=== PATIENT | male | born 1965 | race Caucasian/White ===

== ENCOUNTER 2016-07-05 16:37 | Emergency (ER) | payer BC ==
[~2016-07-05] VITALS: Ht 190.5 cm; Wt 140.6 kg
[2016-07-05 16:46] VITALS: BP 128/68; PULSE 108; RESP 18; TEMP 97.8; O2SAT 92
--- NOTE | 2016-07-05 16:53 | NUR ---
Pt placed to ER bed 07. Pt report given to SANTOS Maynard.
--- NOTE | 2016-07-05 16:57 | NUR ---
Recieved Pt in bed 7. Pt c/o generalize weakness, unlabored to sleep, SOB since yesterday 07/04/2016 Addendum: 07/05/16 at 1733 by STANLEY Pt also c/o of frequency, urgency upon urination and urinary retention.
--- NOTE | 2016-07-05 17:08 | NUR ---
blood drawn and IV started. IV started on left wrist 20 G SL. No s/s of infiltration/inflammation noted. Pt tolerated procedure.
--- NOTE | 2016-07-05 18:00 | NUR ---
Nakul LEONE RN at bedside evaluating Pt. Currently awaiting new orders.
[2016-07-05] MEDS ORDERED: KETOROLAC TROMETHAMINE 30 MG VIAL IVP ONE (18:15)
[2016-07-05] MEDS ORDERED: NACL 0.9% 1,000 ML IV ONE (18:15)
[2016-07-05] MEDS ORDERED: ONDANSETRON HCL 4 MG/2 ML VIAL IVP ONE (18:15)
[2016-07-05 18:18] LABS: HEMATOCRIT 48.3 % (36-54); HEMOGLOBIN 16.1 g/dL (14.0-18.0); MEAN CORPUSCULAR HEMOGLOBIN 27 pg (27-31); MEAN CORPUSCULAR HGB CONC 33 % (32-36); MEAN CORPUSCULAR VOLUME 82 fL (79.0-98.0); PLATELET COUNT (AUTO) 162 K/uL (130-430); RED BLOOD CELL COUNT(AUTO) 5.89 MIL/uL (4.2-6.2); RED CELL DISTRIBUTION WIDTH 15.9 % (9.0-15.0); WHITE BLOOD COUNT (AUTO) 17.1 K/uL (4.8-10.8)
[2016-07-05 18:21] LABS: BILIRUBIN,URINE NEGATIVE (NEGATIVE); BLOOD, URINE 2+ (NEGATIVE); CLARITY/URINE CLEAR (CLEAR); COLOR,URINE YELLOW (YELLOW); GLUCOSE,URINE NEGATIVE (NEGATIVE); KETONES,URINE NEGATIVE (NEGATIVE); LEUKOCYTE ESTERASE ,URINE 1+ (NEGATIVE); NITRITE, URINE POSITIVE (NEGATIVE); PH,URINE 5.5 (5.0-8.0); PROTEIN URINE TRACE (NEGATIVE); UROBILINOGEN,URINE 0.2 (0.2-1.0)
[2016-07-05 18:23] LABS: CALCIUM 9.2 mg/dL (8.4-11.0); CREATININE 1.57 mg/dL (0.55-1.30); POTASSIUM 3.8 mmol/L (3.5-5.1)
--- NOTE | 2016-07-05 18:30 | NUR ---
Pt off to CT. Pt transported to CT via wheelchair.
[2016-07-05 18:38] LABS: ALBUMIN 3.5 g/dL (3.4-4.8); THYROID STIMULATING HORMONE 1.9 uIu/mL (0.34-4.82); TOTAL BILIRUBIN 1.1 mg/dL (0.0-1.0); TOTAL PROTEIN, SERUM 7.3 g/dL (6.4-8.3)
[2016-07-05 18:40] LABS: PROTHROMBIN TIME 11.2 SECS (9.5-12.5)
[2016-07-05 18:50] LABS: BAND % (MANUAL) 1 % (0-6); BASOPHILS % (MANUAL) 0 % (0-2); EOSINOPHILS % (MANUAL) 0 % (0-7); LYMPHOCYTES % (MANUAL) 3 % (20-46); MONOCYTES % (MANUAL) 13 % (0-11)
[2016-07-05 18:53] LABS: BACTERIA,URINE MANY /HPF (None Seen); WBC,URINE >100 /HPF (0-3)
[2016-07-05 18:54] LABS: MUCUS,URINE 2+ /LPF (None Seen)
[2016-07-05 20:50] VITALS: BP 101/66; PULSE 86; RESP 20; TEMP 98.2; O2SAT 99
--- NOTE | 2016-07-05 20:50 | NUR ---
Patient given written and verbal discharge instructions and verbalizes understanding. ER MD discussed with patient the results and treatment provided. Patient in stable condition. ID arm band removed. IV catheter removed intact and dressing applied, no active bleeding. Rx of Cipro, Motrin and Zofran given. Patient educated on pain management and to follow up with PMD. Pain Scale 0/10. Opportunity for questions provided and answered.
== END 2016-07-05 20:50 | disposition home or self-care (01) ==
LOC: SED 16:37
DX: N10 Acute pyelonephritis (principal); I10 Essential (primary) hypertension; M10.9 Gout, unspecified; E66.9 Obesity, unspecified; Z68.38 Body mass index [BMI] 38.0-38.9, adult; Z86.79 Personal history of other diseases of the circulatory system; Z95.9 Presence of cardiac and vascular implant and graft, unspecified
CPT/HCPCS: 36415; 70450; 71010; 80053; 81000; 83605; 84443; 84484; 85007; 85027; 85610; 85730; 86710; 87040; 87086; 93005; 96361; 96365; 96375; 99285; J1885; J1956; J2405; J7030; 87186-TC

== ENCOUNTER 2017-05-12 21:11 | Emergency (ER) | payer SELFPAY ==
[~2017-05-12] VITALS: Ht 190.5 cm; Wt 136.1 kg
[2017-05-12 21:11] VITALS: BP_SYST 129
[2017-05-12] MEDS ORDERED: NACL 0.9% 1,000 ML IV ONE (21:44)
[2017-05-12] MEDS ORDERED: DIPHENHYDRAMINE INJ 50 MG/ML VIAL IVP ONE (21:45)
[2017-05-12] MEDS ORDERED: KETOROLAC TROMETHAMINE 30 MG VIAL IVP ONE (21:45)
[2017-05-12 21:55] LABS: BILIRUBIN,URINE NEGATIVE (NEGATIVE); BLOOD, URINE 1+ (NEGATIVE); CLARITY/URINE HAZY (CLEAR); COLOR,URINE YELLOW (YELLOW); GLUCOSE,URINE 3+ (NEGATIVE); KETONES,URINE NEGATIVE (NEGATIVE); LEUKOCYTE ESTERASE ,URINE 1+ (NEGATIVE); NITRITE, URINE POSITIVE (NEGATIVE); PROTEIN URINE 1+ (NEGATIVE); UROBILINOGEN,URINE 0.2 (0.2-1.0)
[2017-05-12 22:08] LABS: RBC,URINE 0-3 /HPF (0-3)
[2017-05-12 22:09] LABS: BACTERIA,URINE MANY /HPF (None Seen); MUCUS,URINE None Seen /LPF (None Seen); WBC,URINE 20-50 /HPF (0-3)
[2017-05-12 22:19] LABS: BASOPHILS % (AUTO) 0.6 % (0.0-2.0); EOSINOPHILS % (AUTO) 0.4 % (0.0-4.0); HEMOGLOBIN 15.1 g/dL (14.0-18.0); LYMPHOCYTES # (AUTO) 0.4 K/uL (1.0-5.5); LYMPHOCYTES % (AUTO) 7.6 % (20.5-51.5); MEAN CORPUSCULAR HEMOGLOBIN 28 pg (27-31); MEAN CORPUSCULAR HGB CONC 33 % (32-36); MEAN CORPUSCULAR VOLUME 84 fL (79.0-98.0); MONOCYTES # (AUTO) 0.4 K/uL (0.0-1.0); MONOCYTES % (AUTO) 8.2 % (1.7-9.3); NEUTROPHILS # (AUTO) 4.5 K/uL (1.8-7.7); NEUTROPHILS % (AUTO) 83.2 % (40.0-70.0); PLATELET COUNT (AUTO) 156 K/uL (130-430); RED BLOOD CELL COUNT(AUTO) 5.48 MIL/uL (4.2-6.2); RED CELL DISTRIBUTION WIDTH 15.1 % (9.0-15.0); WHITE BLOOD COUNT (AUTO) 5.3 K/uL (4.8-10.8)
[2017-05-12 22:32] LABS: ALBUMIN 3.4 g/dL (3.4-4.8); CALCIUM 9.7 mg/dL (8.4-11.0); CREATININE 1.41 mg/dL (0.55-1.30); POTASSIUM 3.9 mmol/L (3.5-5.1); TOTAL BILIRUBIN 0.7 mg/dL (0.0-1.0)
[2017-05-13] MEDS ORDERED: cefTRIAXone 1 GM IVPB PREMIX 50 ML IV ONE (01:00)
[2017-05-13 01:54] VITALS: BP_SYST 118
== END 2017-05-13 01:54 | disposition home or self-care (01) ==
LOC: SED 21:11
DX: N39.0 Urinary tract infection, site not specified (principal); M10.9 Gout, unspecified; F17.200 Nicotine dependence, unspecified, uncomplicated; E78.5 Hyperlipidemia, unspecified; Z95.1 Presence of aortocoronary bypass graft; Z95.5 Presence of coronary angioplasty implant and graft
CPT/HCPCS: 36415; 74176; 80053; 81000; 85025; 87086; 87186; 96361; 96365; 96375; 99285; J0696; J1200; J1885; J7030